=== PATIENT | male | born 1975 | race Caucasian/White ===

== ENCOUNTER → 2018-10-17 14:12 | Outpatient (CLI) | payer BC, SELFPAY ==
--- NOTE | 2018-10-17 14:18 | MR_ITS ---
PROCEDURE: MR LUMBAR SPINE WO CON CLINICAL INDICATION: ACUTE LEFT-SIDED LOW BACK PAIN W/LEFT SIDED SCIATICA Low back pain which is worsening and moving into the left leg with left leg numbness COMPARISON: XR LUMBAR SPINE MIN 4V from 10/09/2018 TECHNIQUE: Standard multiplanar multiecho sequences are performed without contrast. 3-D MIP and myelographic images are also rendered and reviewed FINDINGS: The spinal cord ends at the T12-L1 level. There is normal alignment. T11-T12: Mild disc desiccation with slight decrease in the disc space. T12-L1: Unremarkable. L1-L2: Unremarkable. L2-L3: Unremarkable. L3-L4: Unremarkable. L4-5: Bulging disc. There is a small central disc protrusion very slightly eccentric toward the right which impinges upon the right L5 nerve root in. There is mild bilateral foraminal narrowing and moderate right lateral recess narrowing. L5-S1: Degenerate disc disease with bulging disc which is slightly eccentric toward the left along with facet ligamentum hypertrophy with moderate to severe bilateral foraminal narrowing along with moderate bilateral lateral recess narrowing. This is slightly greater on the left IMPRESSION: 1. L4-5: Bulging disc. There is a small central disc protrusion very slightly eccentric toward the right which impinges upon the right L5 nerve root in. There is mild bilateral foraminal narrowing and moderate right lateral recess narrowing. 2. L5-S1: Degenerate disc disease with bulging disc which is slightly eccentric toward the left along with facet ligamentum hypertrophy with moderate to severe bilateral foraminal narrowing along with moderate bilateral lateral recess narrowing. This is slightly greater on the left 3. No extruded herniated disc or bony canal stenosis Dictated by: Stevan Hernandez MD 10/19/2018 08:32 Electronically signed by Stevan Hernandez MD in [place] 10/19/2018 08:32
== END ==
PROVIDERS: PCP Family Medicine; Referring Provider Emergency Medicine; Visit Provider Emergency Medicine
DX: M54.42 Lumbago with sciatica, left side (principal)
CPT/HCPCS: 72148; 76376

== ENCOUNTER 2018-11-12 10:00 | Outpatient (RCR) | payer BC, SELFPAY ==
--- NOTE | 2018-10-29 14:25 | HMH.PTOPEV ---
PT Outpatient Evaluation Rehab PT Outpatient Evaluation Start: 10/29/18 13:06 Freq: Status: Active Protocol: Document 10/29/18 14:17 PHOSONY (Rec: 10/29/18 14:25 PHORNE [id number]) Electronically Signed By Nick Paez, PT 10/29/18 14:17 Outpatient Therapy Subjective History Subjective History Pt is a 43 yowm who presents with c/o x ~ 20 yrs intermittently, worse now x ~ 1 mo. He reports pain in the low back comes and goes , as does the pain in his legs. Intermittent tingling in the legs is also present. He had MRI performed which shows dic bulges at L4-5 and L5-S1. He reports no significant PMH. Chief Complaint Pain,Stiff Symptom Type Ache,Tingling Symptoms Relieved By Rest/Positioning,Ice, Prescription Meds Symptoms Aggravated By Physical Activity Prior Functional Limitations None Current Functional Limitations Bending/Stooping Symptom Description Intermittent,Activity Dependent Level of pain today (0-10) 0 Pain scale - at its worst (0-10) 10 Lumbopelvic Eval Range of Motion Lumbar Spine Active Flexion Range of 0-65 Motion (degrees) Lumbar Spine Active Extension Range of 0-20 Motion (degrees) Left Lumbar Spine Lateral Flexion Active 0-20 Range of Motion (degrees) Right Lumbar Spine Lateral Flexion 0-20 Active Range of Motion (degrees) Manual Muscle Test Bilateral Knee Extension Strength Grade 5 Normal Knee Flexion Strength Grade 5 Normal Hip Flexion Strength Grade 5 Normal Hip Abduction Strength Grade 5 Normal Hip Adduction Strength Grade 5 Normal Hip External Rotation Strength Grade 5 Normal Hip Internal Rotation Strength Grade 5 Normal Hip Extension Strength Grade 5 Normal Gluteus Parminder Strength Grade 5 Normal Extensor Hallucis Longus Strength Grade 5 Normal Ankle Dorsiflexion Strength Grade 5 Normal Gastronemius/Soleus Strength Grade 5 Normal DTR Rt Patellar 2+ Lt Patellar 2+ Rt Gastroc/Soleus 2+ Lt Gastroc/Soleus 2+ Special Tests Hip Scouring (Quadrant) Test Negative Left,Negative Right Hip Neri (TRACIE) Test Negative Left,Negative Right Sciatic Nerve Tension Test Negative Left,Negative Right Unilateral Straight Leg Raise (Lasegue) Negative Left,Negative Right Test Lumbar Long [place] Distraction Test/Manual Negative Traction
== END 2018-12-11 09:30 | disposition home or self-care (01) ==
LOC: PT 10:00
PROVIDERS: PCP Family Medicine; Visit Provider Emergency Medicine
DX: M47.27 Other spondylosis with radiculopathy, lumbosacral region (principal)
CPT/HCPCS: 97110; 97163

== ENCOUNTER → 2021-09-04 14:05 | Outpatient (CLI) | payer BC, SELFPAY ==
[2021-09-04 14:30] LABS: Basophils # 0.1 K/mm3 (0-0.2); Eosinophils # 0.1 K/mm3 (0.0-0.4); Eosinophils % 1.5 % (0.1-12.0); Hemoglobin 16.5 g/dL (14.1-18.0); Lymphocytes # 2.3 K/mm3 (0.7-4.5); Lymphocytes % 32.4 % (10-50); Mean Corpuscular HGB Conc 33.6 g/dL (31.8-35.4); Mean Corpuscular Hemoglobin 30.7 pg (27.0-31.2); Mean Corpuscular Volume 91.4 fl (80-94); Mean Platelet Volume 7.3 fl (7.4-10.4); Monocytes # 0.7 K/mm3 (0.1-1.0); Monocytes % 9.6 % (1.7-9.3); Neutrophils # 3.9 K/mm3 (1.8-7.8); Neutrophils % 55.5 % (37.0-80.0); Platelet Count 332 K/mm3 (142-424); Red Blood Count 5.36 M/mm3 (4.60-6.20); Red Cell Distribution Width 13.6 % (11.5-17.5)
[2021-09-04 14:42] LABS: Anion Gap 12.2 mEq/L (5-15); Blood Urea Nitrogen 15 mg/dl (9-20); Calcium 10.1 mg/dl (8.4-10.2); Carbon Dioxide 32 mmol/L (22.0-30.0); Chloride 100 mmol/L (98-107); Estimated Glomerular Filt Rate 90 ml/min (>60); GFR (African American) 109 ML/MIN (>60); Glucose 113 mg/dl (74-100); Potassium 4.2 mmoL/L (3.5-5.1); Sodium 140 mmol/L (136-145)
== END ==
PROVIDERS: PCP Family Medicine; Visit Provider Surgery
DX: Z01.812 Encounter for preprocedural laboratory examination (principal); Z20.822 Contact with and (suspected) exposure to COVID-19; K40.90 Unilateral inguinal hernia, without obstruction or gangrene, not specified as recurrent
CPT/HCPCS: 36415; 80048; 85025; C9803; U0003; U0005

== ENCOUNTER 2021-09-06 08:22 | Day surgery (SDC) | payer BC, SELFPAY ==
[2021-09-01 12:19] VITALS: BMI 23.6
[2021-09-06] VITALS (11 sets, daily range): BP systolic 108–133; BP diastolic 67–83; PULSE 69–89; RESP 16–18; TEMP 36.3–38; O2SAT 92–100
--- NOTE | 2021-09-06 09:02 | P.PN_ITS ---
[facility] Anesthesia Checklist - Patient Identification Patient Identification: Arm Band - Structural Data Admitted From: Home Planned Operative Procedure/s: Inguinal hernia repair Consent for Planned Operative Procedure(s) Verified: Yes - NPO Status Verified Time NPO: 00:00 - Additional verifications Anesthesia Reactions: No Hx Blood Transfusions: No Blood Transfusion Reaction: No - Airway Assessment C-Spine Mobility Assessed: Yes TMJ Mobility Assessed: Yes Dentition: Edentulous - Neurological Assessment Level of Consciousness: Awake Hx Seizures: No Numbness or tingling in extremities: Yes - Anesthesia Plan Anesthesia Risk discussed: Yes Anesthesia Plan: Verified ASA Class: I Anesthesia Type: General [facility] History I have reviewed the patient's past medical history: Yes Medical History: Denies:: Cancer, Diabetes Mellitus Type 1, Diabetes Mellitus Type 2, Internal Pacemaker, MRSA, Seizures *Have you ever received a pneumonia vaccine?: No *Have you received a flu vaccine this season?: No Other Medical History: Reports: Other (Neuropathy). Denies: Blood Transfusion Reaction Anesthesia experience/problems:: None Other Surgeries: No: Pacemaker Amputation: No Fractures: No - *Social History Last grade of school completed: High school graduate Smoking Status: Former smoker Alcohol Intake: never Substance Use Type: denies use *Occupational Status:: employed Household Members: spouse *Travel in the last 8 weeks: None Family Hx:: No significant family history
--- NOTE | 2021-09-06 10:47 | P.HP_ITS ---
HPI HPI: Patient is a 46-year-old male referred by Dr. Dumont for left inguinal hernia. He works at [employer]. He states that for couple of months he has had some swelling in the left groin area. He has some increased tenderness when he is at work on his feet. He states that this does affect his work and he actually had to leave early yesterday. He denies any particular inciting event. [facility] History I have reviewed the patient's past medical history: Yes Medical History: Denies:: Cancer, Diabetes Mellitus Type 1, Diabetes Mellitus Type 2, Internal Pacemaker, MRSA, Seizures *Have you ever received a pneumonia vaccine?: No *Have you received a flu vaccine this season?: No Other Medical History: Reports: Other (Neuropathy). Denies: Blood Transfusion Reaction Anesthesia experience/problems:: None Other Surgeries: No: Pacemaker Amputation: No Fractures: No - *Social History Last grade of school completed: High school graduate Smoking Status: Former smoker Alcohol Intake: never Substance Use Type: denies use *Occupational Status:: employed Household Members: spouse *Travel in the last 8 weeks: None Family Hx:: No significant family history Review of Systems - Review of Systems Review of systems:: pertinent systems reviewed and negative unless documented below Meds Home Medications Medication Instructions Recorded Confirmed Type gabapentin 300 mg capsule 300 mg PO BID cap 07/27/21 09/06/21 History Allergies Allergy/AdvReac Type Severity Reaction Status Date / Time No Known Allergies Allergy Verified 09/06/21 08:47 Exam Vital signs and Labs for Last 24 Hours: Temp Pulse Resp BP Pulse Ox 98.3 F 80 18 133/69 96 09/06/21 08:50 09/06/21 08:50 09/06/21 08:50 09/06/21 08:50 09/06/21 08:50 - Constitutional no acute distress - *Routine HEENT Exam Head: Present: normocephalic Eye: Present: EOMI, PERRL ENT: Present: mucous membranes moist - *Routine Neck Exam Present: supple. Absent: lymphadenopathy - *Routine Respiratory Exam Present: CTA bilaterally - *Routine Cardiovascular Exam Present: RRR - *Routine Abdominal Exam Present: soft, normoactive bowel sounds. Absent: tenderness - *Routine Rectal Exam Rectal:: deferred - *Routine Genitalia Exam Genitalia:: other Comment:: Palpable left inguinal hernia. No evidence of any hernia on the right. - *Routine Extremities Exam Absent: cyanosis, clubbing, edema - *Routine Skin Exam Present: warm. Absent: rash - *Routine Neurological Exam Present: alert, oriented X3 Assessment and Plan - Assessment and plan all Dx Assessment and Plan for all problems:: I discussed the options with the patient. He would like to pursue repair. Plan will be for open left inguinal hernia repair given the unilateral nature.
--- NOTE | 2021-09-06 12:27 | P.OP_ITS ---
Date of procedure: 09/06/21 Pre-op Diagnosis:: Left inguinal hernia Post-op Diagnosis:: Same Procedure performed:: Open repair of left inguinal hernia with placement of Bard prefix mesh without plug Surgeon:: José Miguel Van MD SHOWER ROOM ATTENDANT:: Nathan Dong Anesthesia: GETA Estimated blood loss (mL): 10 Clinical Note:: Patient is a 46-year-old male referred by Dr. Dumont for left inguinal hernia. He works at [employer]. He states that for couple of months he has had some swelling in the left groin area. He has some increased tenderness when he is at work on his feet. He states that this does affect his work and he actually had to leave early yesterday. He denies any particular inciting event. Patient was seen and examined and found to have a unilateral left inguinal hernia which was reducible. The options were discussed with him. He wished to pursue repair. Plan was made for open left inguinal hernia repair. Operative findings:: He had findings of direct hernia with some evidence of possible mild small indirect hernia as well with cord lipoma . Operative note:: Patient was taken the operating room. He was positioned in supine position. General anesthesia was induced. Martínez catheter was placed. Lower abdomen and perineum were prepped and draped in the standard surgical fashion. Oblique skin incision was made in the left inguinal area superior to landmarks identifying the inguinal ligament. Dissection was carried down through subcutaneous tissues and Shannon's fascia using electrocautery. External oblique muscle was cleaned free. External oblique muscle was opened along the length of its fibers to the external inguinal ring. Underlying ilioinguinal nerve was identified. It was rather attenuated but it was preserved. Cord structures were dissected free from the floor the inguinal canal and encircled with a Mercedes drain. There was noted to be herniated fat as a direct hernia defect. Dissection was carried out of the cord and there was evidence of cord lipoma and some fibrosis. With meticulous careful dissection this was dissected free from the cord and sent off as specimen labeled hernia contents . Attention was turned to repair. Given the nature of the hernia plan was made to forego placement of plug. The floor of the inguinal canal was repaired using the Bard prefix mesh onlay mesh. This was sutured to Tim's ligament and along the shelving edge of the inguinal ligament with a running 2-0 PDS suture. It was secured superomedially to the t ransversalis fascia muscle with interrupted 2-0 PDS horizontal mattress sutures. Cord structures were returned to the normal anatomic position as well as the ilioinguinal nerve. The 2 tails of the mesh were used to encircle the cord structures and sutured 1 another with several interrupted 2-0 PDS sutures to reconstruct the internal ring. Local anesthetic was then infiltrated. There was good hemostasis. External oblique muscle was closed over the cord structures with running 2-0 Vicryl. Shannon's fascia was closed with running 2-0 Vicryl. Skin was closed with 4-0 Monocryl in a running subcuticular fashion. Steri-Strips and dressings were applied. Condition: stable Disposition: PACU Specimens:: Hernia contents Complications:: None immediately apparent
--- NOTE | 2021-09-06 12:32 | HMH.ANESI ---
[facility] Anesthesia Record Part I Intake, IV Amount: 1,000 Estimated blood loss (mL): 5 Urine output (mL): 100 Blood Pressure: 109/70 SaO2: 96 Pulse Rate: 71 Respiratory Rate: 16 Temperature: 97.4 F Patient is:: Drowsy, Stable Stable to PACU at:: 12:30
[2021-09-06 15:00] LABS: Microscopic,Cath URINE MICROSCOPIC (MICROSCOPIC)
[2021-09-06 15:12] LABS: Appearance,Urine/Cath CLEAR (Clear); Bilirubin,Cath Negative (Negative); Blood, Urine/Cath Negative (Negative); Color,Urine/Cath YELLOW (Yellow); Glucose,Urine/Cath (UA) Negative (Negative); Ketones,Urine/Cath Negative (Negative); Leukocyte Esterase,Cath Negative (Negative); Nitrate,Cath Negative (Negative); PH,Urine/Cath 7.5 (5.0-8.5); Protein,Urine/Cath Negative (Negative); Urobilinogen,Cath 0.2 EU/dl (0.2)
[2021-09-06 15:31] LABS: Bacteria,Urine/Cath TRACE /lpf; RBC,Urine/Cath Occasional # /hpf (0-3); Squamous Epithelial Ur./Cath Occasional #/hpf (0-5); WBC,Urine/Cath Occasional #/hpf (0-3)
--- NOTE | 2021-09-07 07:24 | HMH.ANESII ---
[facility] Anesthesia Record Part II Discharge Time: 12:59 Destination: Surgical Day Care (OP Surgery) PACU nurse assessment reviewed?: Yes Patient Condition:: Good Anesthesia Complications:: None Swallowing reflex intact?: Yes Cyanosis?: No Blood Pressure: 130/67 Pulse Rate: 79 Temperature: 97.3 F Mental Status: Alert & Oriented Pain level:: 0 Nausea and/or vomitting:: None Intake, IV Amount: 0
[2021-09-07 07:25] VITALS: BP 130/67; PULSE 79; TEMP 36.3
== END 2021-09-06 13:29 | disposition home or self-care (01) ==
LOC: OR 08:25
PROVIDERS: PCP Family Medicine; Visit Provider Surgery
PROC: (CPT 49505; principal; 2021-09-06 09:45)
DX: K40.90 Unilateral inguinal hernia, without obstruction or gangrene, not specified as recurrent (principal); G62.9 Polyneuropathy, unspecified; Z79.899 Other long term (current) drug therapy
CPT/HCPCS: 49505; 81001; 96374; J2405

== ENCOUNTER 2024-04-15 11:01 | Day surgery (SDC) | payer BC, SELFPAY ==
[2024-04-15 11:09] VITALS: BP 144/97; PULSE 100; RESP 18; TEMP 36.4; O2SAT 98; BMI 26.5
[2024-04-15] MEDS: LACTATED RINGERS 1000ML 1,000 ML 50 ML IV (11:23)
--- NOTE | 2024-04-15 12:16 | EXP.ANES.CKL ---
[facility] Disclaimer: The information contained in this section may have been updated after the patient was seen, as this information can be updated by other users. Medical History (Updated 04/15/24 @ 11:14 by Maritza Pete RN) Hx of rheumatic fever History of COVID-19 Surgical History (Updated 04/15/24 @ 11:14 by Maritza Pete RN) History of eye surgery S/P hernia surgery Family History (Updated 04/15/24 @ 11:14 by Maritza Pete RN) Other No significant family history Social History (Updated 04/15/24 @ 11:14 by Maritza Pete RN) Smoking Status: Former smoker alcohol intake: never substance use type: denies use current occupational status: employed Travel in the last 8 weeks: None household members: spouse caffeine: Yes Have you lived/traveled outside US in past 30 days?: No Contact w/someone who lives/traveled outside US past 30 days?: No Exposure to someone with infectious disease in past 14 days?: No Do you have a fever (greater than 100.4 F or 38 C)?: No Have you tested positive for COVID-19: Yes Exposed to someone with COVID-19 in past 14 days?: No Do you have a sore throat?: No Do you have a cough?: No Do you have any weakness?: No Are you experiencing any nausea/vomitting?: No Do you have any diarrhea?: No Are you experiencing any unusual bleeding?: No Do you have any muscle aches/pain?: No Do you have any abdominal pain?: No Are you experiencing loss of taste or smell?: No [facility] Anesthesia Checklist Patient Identification Patient Identification: Arm Band Structural Data Admitted From: Home Planned Operative Procedure/s: Colonoscopy Consent for Planned Operative Procedure(s) Verified: Yes Verified Documents: Surgical Consent and History and Physical NPO Status Verified Time NPO: 00:00 Additional verifications Anesthesia Reactions: No Hx Blood Transfusions: No Blood Transfusion Reaction: No Airway Assessment Mallampati Score:: Class II C-Spine Mobility Assessed: Yes TMJ Mobility Assessed: Yes Dentition: Edentulous Neurological Assessment Level of Consciousness: Awake, Alert and Appropriate Anesthesia Plan Anesthesia Risk discussed: Yes Anesthesia Plan: Verified ASA Class: II Anesthesia Type: MAC
--- NOTE | 2024-04-15 12:40 | EXP.HP ---
History of Present Illness *Admission Date: 04/15/24 *Reason for visit:: Screening for colon cancer *History of present illness: Mr. Lucero is a 49-year-old gentleman who is here for initial screening colonoscopy. The examination is deemed medically necessary for screening colonoscopy. The patient has been seen, interviewed and examined prior to the procedure by both myself and the anesthesia provider. [facility] Disclaimer: The information contained in this section may have been updated after the patient was seen, as this information can be updated by other users. Medical History (Updated 04/15/24 @ 12:46 by Omari Olivier II, MD) Hx of rheumatic fever History of COVID-19 Surgical History (Updated 04/15/24 @ 11:14 by Maritza Pete RN) History of eye surgery S/P hernia surgery Family History (Updated 04/15/24 @ 11:14 by Maritza Pete RN) Other No significant family history Social History (Updated 04/15/24 @ 11:14 by Maritza Pete RN) Smoking Status: Former smoker alcohol intake: never substance use type: denies use current occupational status: employed Travel in the last 8 weeks: None household members: spouse caffeine: Yes Have you lived/traveled outside US in past 30 days?: No Contact w/someone who lives/traveled outside US past 30 days?: No Exposure to someone with infectious disease in past 14 days?: No Do you have a fever (greater than 100.4 F or 38 C)?: No Have you tested positive for COVID-19: Yes Exposed to someone with COVID-19 in past 14 days?: No Do you have a sore throat?: No Do you have a cough?: No Do you have any weakness?: No Are you experiencing any nausea/vomitting?: No Do you have any diarrhea?: No Are you experiencing any unusual bleeding?: No Do you have any muscle aches/pain?: No Do you have any abdominal pain?: No Are you experiencing loss of taste or smell?: No Other Medical History Have you received the Flu Vaccine for this season: No Have you received the Pneumonia Vaccine: No Review of Systems Review of Systems Review of systems (narrative): Negative *Cardiovascular Comments: Negative *Gastrointestinal Comments: Negative *Genitourinary Comments: Negative *Musculoskeletal Comments: Negative *Neurologic Comments: Negative Meds Home Medications and Allergies Home Medications ?Medication ?Instructions ?Recorded ?Confirmed ?Type gabapentin 300 mg capsule 300 mg PO BID lower back pain 07/27/21 04/15/24 History sodium,potassium,mag sulfates 17.5 See Rx Instructions PO .COMPLEX 04/01/24 04/15/24 Rx gram-3.13 gram-1.6 gram oral soln #354 mL (Suprep Bowel Prep Kit) naproxen 250 mg tablet 0 mg PO DAILY PRN . 04/15/24 04/15/24 History New Prescriptions to Start Prescriptions: Allergies Allergy/AdvReac Type Severity Reaction Status Date / Time No Known Allergies Allergy Verified 04/15/24 11:10 Exam Data for Last 24 hours Vital signs and Labs for Last 24 Hours: Temp Pulse Resp BP Pulse Ox O2 Del Method 97.6 F 100 H 18 144/97 H 98 Room Air 04/15/24 11:09 04/15/24 11:09 04/15/24 11:09 04/15/24 11:09 04/15/24 11:09 04/15/24 11:09 I & O for Last 24 hours: Intake & Output 04/12/24 04/13/24 04/14/24 04/15/24 23:59 23:59 23:59 23:59 Weight 185 lb *Routine HEENT Exam Head: Present normocephalic Eye: Present EOMI and PERRL ENT: Present mucous membranes moist *Routine Neck Exam Neck: Present supple *Routine Respiratory Exam Respiratory: Present CTA bilaterally *Routine Cardiovascular Exam Cardiovascular: Present RRR *Routine Abdominal Exam Abdominal: Present soft and normoactive bowel sounds; Absent tenderness *Routine Rectal Exam Rectal:: deferred *Routine Genitalia Exam Genitalia:: deferred *Routine Extremities Exam Extremities: Absent cyanosis, clubbing or edema *Routine Skin Exam Skin: Present warm; Absent rash *Routine Neurological Exam Neurological: Present alert and oriented X3 Assessment and Plan *Assessment and plan (1) Screening for colon cancer: Status: Acute Category: Medical Code(s): Z12.11 - Encounter for screening for malignant neoplasm of colon Plan A/P: 1. Screening for colon cancer is the preprocedural diagnosis. The patient will be anesthetized/sedated using MAC sedation. The patient has been seen and examined. Cardiac and lung assessment prior to the examination is stable. Proceed with planned screening colonoscopy
--- NOTE | 2024-04-15 12:46 | P.PCN_ITS ---
[facility] Procedure Note Date: 04/15/24 Time: 13:09 Procedure Note:: Colonoscopy Procedure Report: Colonoscopy with snare cautery, cold snare polypectomy and Endo Clip placement Endoscopist: Omari Olivier II, MD Referring physician: Clifton Gaspar MD Date of Procedure: April 15, 2024 Equipment: Olympus 190 variable stiffness pediatric colonoscope Sedation: MAC sedation Indication: Mr. Lucero is a 49-year-old gentleman who is here for initial screening colonoscopy. He reports no abdominal pain, weight loss, change in his bowel habits or rectal bleeding. He reports no family history of colon cancer. Procedure: Prior to the procedure, a history and physical exam was performed, and patient's medications and allergies were reviewed. The risks, benefits and alternatives of the sedation and procedure were discussed with the patient. All questions were answered and informed consent was obtained. The patient was brought to the procedure room. Patient identification and proposed procedure were verified by the physician and the nurse. The patient was placed in a left lateral decubitus position and the scope was passed under direct vision. Throughout the procedure, the patient's blood pressure, pulse, and oxygen saturations were monitored continuously. The colonoscopy was accomplished without difficulty. The patient tolerated the procedure well. Findings: On digital rectal examination there was normal rectal tone. There were no external hemorrhoids. The colonoscope was introduced through the anal canal to the rectum and advanced to the cecum. The ileocecal valve and appendiceal orifice were identified. The scope was advanced a short distance into the ileum which appeared grossly normal. The scope was then withdrawn into the colon. There were 4 polyps (cecum x 1 (3 mm), transverse x 1 (5 mm), descending x 1 (4 mm) and rectosigmoid x 1 (16 mm)). The smaller polyps were removed via cold snare polypectomy. The larger polyp was removed via snare cautery with coagulation. The polypectomy site on the largest polyp was closed with a single Endo Clip. The remaining cecum, ascending, transverse, descending, sigmoid and rectum were grossly normal. There were no other mucosal abnormalities identified. Upon retroflexion within the rectum there were grade 2 internal hemorrhoids. The preparation was excellent throughout with [place] Preparation Score of 9. The cecal time was 14 minutes. Impression: 1. 16 mm rectosigmoid polyp (probable advanced adenoma) 2. 3 additional diminutive colon polyps 3. Grade 2 internal hemorrhoids Plan: I will follow-up the polyp histology and recommend repeat sigmoidoscopy in 6 to 12 months based upon pathology and repeat colonoscopy in 3 years. I would encourage psyllium bulking fiber supplementation on a maintenance basis.
[2024-04-15 13:13] VITALS: BP 100/44; PULSE 75; RESP 16; TEMP 36.1; O2SAT 96
[2024-04-15 13:23] VITALS: BP 95/60; PULSE 64; RESP 16; O2SAT 97
[2024-04-15 13:33] VITALS: BP 117/72; PULSE 67; RESP 16; O2SAT 100
[2024-04-15 13:43] VITALS: BP 101/71; PULSE 64; RESP 16; O2SAT 99
== END 2024-04-15 14:02 | disposition home or self-care (01) ==
PROVIDERS: PCP Family Medicine; Visit Provider Internal Medicine Gastroenterology
PROC: 0DJD8ZZ Inspection of Lower Intestinal Tract, Via Natural or Artificial Opening Endoscopic (ICD-10-PCS; CPT 45378; principal; 2024-04-15 12:30)
DX: K63.5 Polyp of colon (principal); K64.1 Second degree hemorrhoids; Z12.11 Encounter for screening for malignant neoplasm of colon
CPT/HCPCS: 45385; J7120

== ENCOUNTER 2024-04-22 11:09 | Outpatient (CLI) | payer BC, SELFPAY ==
[2024-04-22 12:27] LABS: Prostate Specific Ag, Diagnost 1.08 ng/ml (0.0-4.0)
== END 2024-04-22 23:59 | disposition home or self-care (01) ==
LOC: LAB 11:10
PROVIDERS: PCP Family Medicine; Visit Provider Urology
DX: N40.1 Benign prostatic hyperplasia with lower urinary tract symptoms (principal)
CPT/HCPCS: 36415; 84153

== ENCOUNTER 2024-09-30 07:40 | Day surgery (SDC) | payer BC, SELFPAY ==
[2024-09-27 11:15] VITALS: BMI 22.9
--- NOTE | 2024-09-30 05:15 | EXP.HP ---
History of Present Illness *Admission Date: 09/30/24 *Reason for visit:: Advanced adenoma rectum *History of present illness: Mr. Lucero is a 49-year-old gentleman who is here for sigmoidoscopy for screening. He did have a colonoscopy in April 2024 and had a 16 mm advanced adenoma of the rectosigmoid removed. Pathology showed tubular adenoma without high-grade dysplasia. the examination is deemed medically necessary for screening sigmoidoscopy. The patient has been seen, interviewed and examined prior to the procedure by both myself and the anesthesia provider. [facility] Disclaimer: The information contained in this section may have been updated after the patient was seen, as this information can be updated by other users. Medical History (Updated 09/30/24 @ 07:55 by Sergo Alcazar RN) History of back pain Hx of rheumatic fever History of COVID-19 Surgical History History of eye surgery S/P hernia surgery Family History (Updated 09/30/24 @ 07:57 by Sergo Alcazar RN) Other Family history of colon cancer Social History (Updated 09/30/24 @ 07:59 by Sergo Alcazar RN) Smoking Status: Former smoker alcohol intake: never substance use type: denies use current occupational status: employed Travel in the last 8 weeks?: None household members: spouse caffeine: Yes Have you lived/traveled outside [place] in past 30 days?: No Contact w/someone who lives/traveled outside [place] past 30 days?: No Exposure to someone with infectious disease in past 14 days?: No Do you have a fever (greater than 100.4 F or 38 C)?: No Have you tested positive for COVID-19?: Yes Exposed to someone with COVID-19 in past 14 days?: No Do you have a sore throat?: No Do you have a cough?: No Do you have any weakness?: No Do you have any diarrhea?: No Are you experiencing any unusual bleeding?: No Do you have any muscle aches/pain?: No Do you have any abdominal pain?: No Are you experiencing loss of taste or smell?: No Other Medical History Have you received the Flu Vaccine for this season: No Have you received the Pneumonia Vaccine: No Review of Systems Review of Systems Review of systems (narrative): Negative *Cardiovascular Comments: Negative *Gastrointestinal Comments: Negative *Genitourinary Comments: Negative *Musculoskeletal Comments: Negative *Neurologic Comments: Negative Meds Home Medications and Allergies Home Medications ?Medication ?Instructions ?Recorded ?Confirmed ?Type gabapentin 300 mg capsule 300 mg PO BID lower back pain 07/27/21 09/30/24 History naproxen 250 mg tablet 250 mg PO DAILY PRN . 04/15/24 09/30/24 History tadalafil 5 mg tablet 5 mg PO DAILY PRN Erectile 09/27/24 09/30/24 History Dysfunction New Prescriptions to Start Prescriptions: Allergies Allergy/AdvReac Type Severity Reaction Status Date / Time No Known Allergies Allergy Verified 09/30/24 07:54 Exam Data for Last 24 hours I & O for Last 24 hours: Intake & Output 09/27/24 09/28/24 09/29/24 09/30/24 23:59 23:59 23:59 23:59 Weight 160 lb *Routine HEENT Exam Head: Present normocephalic Eye: Present EOMI and PERRL ENT: Present mucous membranes moist *Routine Neck Exam Neck: Present supple *Routine Respiratory Exam Respiratory: Present CTA bilaterally *Routine Cardiovascular Exam Cardiovascular: Present RRR *Routine Abdominal Exam Abdominal: Present soft and normoactive bowel sounds; Absent tenderness *Routine Rectal Exam Rectal:: deferred *Routine Genitalia Exam Genitalia:: deferred *Routine Extremities Exam Extremities: Absent cyanosis, clubbing or edema *Routine Skin Exam Skin: Present warm; Absent rash *Routine Neurological Exam Neurological: Present alert and oriented X3 Assessment and Plan *Assessment and plan (1) Adenoma of rectosigmoid junction of large intestine: Status: Acute Category: Medical Code(s): D12.7 - Benign neoplasm of rectosigmoid junction Plan A/P: 1. Adenoma of rectosigmoid junction is the preprocedural diagnosis. The patient will be anesthetized/sedated using MAC sedation. The patient has been seen and examined. Cardiac and lung assessment prior to the examination is stable. Proceed with planned sigmoidoscopy.
[2024-09-30] MEDS: LACTATED RINGERS 1000ML 1,000 ML 50 ML IV (07:53)
[2024-09-30 07:59] VITALS: BP 125/63; PULSE 70; RESP 18; TEMP 36.3; O2SAT 98
--- NOTE | 2024-09-30 08:19 | P.PNANES_ITS ---
[facility] Disclaimer: The information contained in this section may have been updated after the patient was seen, as this information can be updated by other users. Medical History (Updated 09/30/24 @ 07:55 by Sergo Alcazar RN) History of back pain Hx of rheumatic fever History of COVID-19 Surgical History History of eye surgery S/P hernia surgery Family History (Updated 09/30/24 @ 07:57 by Sergo Alcazar RN) Other Family history of colon cancer Social History (Updated 09/30/24 @ 07:59 by Sergo Alcazar RN) Smoking Status: Former smoker alcohol intake: never substance use type: denies use current occupational status: employed Travel in the last 8 weeks?: None household members: spouse caffeine: Yes Have you lived/traveled outside [place] in past 30 days?: No Contact w/someone who lives/traveled outside [place] past 30 days?: No Exposure to someone with infectious disease in past 14 days?: No Do you have a fever (greater than 100.4 F or 38 C)?: No Have you tested positive for COVID-19?: Yes Exposed to someone with COVID-19 in past 14 days?: No Do you have a sore throat?: No Do you have a cough?: No Do you have any weakness?: No Do you have any diarrhea?: No Are you experiencing any unusual bleeding?: No Do you have any muscle aches/pain?: No Do you have any abdominal pain?: No Are you experiencing loss of taste or smell?: No [facility] Anesthesia Checklist Patient Identification Patient Identification: Arm Band and Verbal (Name & ) Structural Data Admitted From: Home Planned Operative Procedure/s: Flex sigmoidoscopy Verified Documents: Surgical Consent NPO Status Verified Time NPO: 00:00 Additional verifications Anesthesia Reactions: No Hx Blood Transfusions: No Blood Transfusion Reaction: No Airway Assessment Mallampati Score:: Class II C-Spine Mobility Assessed: Yes TMJ Mobility Assessed: Yes Dentition: Edentulous Neurological Assessment Level of Consciousness: Awake, Alert and Appropriate Hx Seizures: No Numbness or tingling in extremities: No Anesthesia Plan Anesthesia Risk discussed: Yes Anesthesia Plan: Verified ASA Class: II Anesthesia Type: MAC
--- NOTE | 2024-09-30 09:05 | P.PCN_ITS ---
[facility] Procedure Note Date: 09/30/24 Time: 09:18 Procedure Note:: Flexible Sigmoidoscopy Procedure Report: Sigmoidoscopy Endoscopist: Omari Olivier II, MD Referring physician: Clifton Gaspar MD Date of Procedure: September 30, 2024 Equipment: Olympus 180 variable stiffness pediatric colonoscope Sedation: MAC sedation Indication: Mr. Lucero is a 49-year-old gentleman who is here for sigmoidoscopy for screening. He did have a colonoscopy in April 2024 and had a 16 mm advanced adenoma of the rectosigmoid removed. Pathology showed tubular adenoma without high-grade dysplasia. The patient is here today to examine site of larger advanced adenomatous polyp removal to exclude residual or recurrence. He reports no abdominal pain, weight loss, change in his bowel habits or rectal bleeding. He reports no family history of colon cancer. Procedure: Prior to the procedure, a history and physical exam was performed, and patient's medications and allergies were reviewed. The risks, benefits and alternatives of the sedation and procedure were discussed with the patient. All questions were answered and informed consent was obtained. The patient was brought to the procedure room. Patient identification and proposed procedure were verified by the physician and the nurse. The patient was placed in a left lateral decubitus position and the scope was passed under direct vision. Throughout the procedure, the patient's blood pressure, pulse, and oxygen saturations were monitored continuously. The colonoscopy was accomplished without difficulty. The patient tolerated the procedure well. Findings: On digital rectal examination, there was normal rectal tone and no external hemorrhoids. The scope was then inserted through the anal canal and into the rectum. The scope was advanced to 40 cm. Upon withdrawal, the sigmoid, rectosigmoid and rectum were normal. The prior larger polypectomy site was identified as white fibrotic mucosal scar but no residual adenomatous tissue was identified. Upon retroflexion within the rectum there were grade 2 internal hemorrhoids. Impression: 1. Normal sigmoidoscopy to 40 cm with no residual adenomatous polyp Plan: I would recommend repeat surveillance colonoscopy again in 3 years.
[2024-09-30 09:16] VITALS: BP 92/56; PULSE 67; RESP 17; TEMP 36.5; O2SAT 95
[2024-09-30 09:26] VITALS: BP 99/59; PULSE 74; RESP 18; O2SAT 97
[2024-09-30 09:36] VITALS: BP 119/72; PULSE 70; RESP 17; O2SAT 97
[2024-09-30 09:46] VITALS: BP 114/78; PULSE 58; RESP 18; O2SAT 100
== END 2024-09-30 10:00 | disposition home or self-care (01) ==
PROVIDERS: PCP Family Medicine; Visit Provider Internal Medicine Gastroenterology
PROC: 0DJD8ZZ Inspection of Lower Intestinal Tract, Via Natural or Artificial Opening Endoscopic (ICD-10-PCS; CPT 45330; principal; 2024-09-30 09:00)
DX: Z12.11 Encounter for screening for malignant neoplasm of colon (principal); Z86.0101 Personal history of adenomatous and serrated colon polyps; Z87.891 Personal history of nicotine dependence; Z79.899 Other long term (current) drug therapy
CPT/HCPCS: 45330; J2003; J2704; J7120